=== PATIENT | female | born 1940 | race American Indian/Alaskan Native ===

== ENCOUNTER 2017-05-13 17:39 | Emergency (ER) | payer MEDICARE ==
[2017-05-13 17:39] VITALS: BMI 28.8
[2017-05-13 18:16] VITALS: RESP 16; TEMP 97.8; O2SAT 98
[2017-05-13 19:49] LABS: URINE APPEARANCE CLEAR (CLEAR); URINE BILIRUBIN NEGATIVE (NEGATIVE); URINE BLOOD NEGATIVE (NEGATIVE); URINE GLUCOSE (UA) NEGATIVE (NEGATIVE); URINE KETONE NEGATIVE (NEGATIVE); URINE LEUKOCYTE ESTERASE NEGATIVE Leu/uL (NEGATIVE); URINE PROTEIN NEGATIVE mg/dL (<30 mg/dL); URINE UROBILINOGEN 0.2 E.U./dL (<1 E.U./dL)
--- NOTE | 2017-05-13 20:23 | ED PDOC ---
Arrival/HPI - General Chief Complaint: Back Pain Time Seen by Provider: 05/13/17 17:48 Historian: Patient - History of Present Illness Narrative History of Present Illness (Text): 05/13/17 20:48 76 yo F w/ pmh of HTN, reports several day h/o atraumatic pain in the lower back , worse with movement, not taking any medication for her pain. Otherwise: (-) urinary symptoms, (-) paresthesias, (-) weakness, (-) acute bowel or bladder dysfunction, (-) fever. Has no history of prior back problem. Of note, patient's bp is noted to be elevated, states that she did not take her bp medication today, does not recall the name or dose and receives her Rx in the mail. Denies any dizziness, headache, chest pain or SOB. PMD Christy Past Medical History - Provider Review Nursing Documentation Reviewed: Yes - Past History Past History: No Previous - Infectious Disease Hx of Infectious Diseases: None - Tetanus Immunization Tetanus Immunization: Unknown - Reproductive Menopause: Yes - Cardiac Hx Hypertension: Yes - Neurological Hx Paralysis: No - Hematological/Oncological Hx Blood Transfusions: No - Musculoskeletal/Rheumatological Hx Musculoskeletal Disorders: No - Psychiatric Hx Emotional Abuse: No Hx Physical Abuse: No Hx Substance Use: No - Surgical History Hx Hysterectomy: Yes - Anesthesia Hx Anesthesia Reactions: No Hx Malignant Hyperthermia: No - Suicidal Assessment Feels Threatened In Home Enviroment: No Family/Social History - Physician Review Nursing Documentation Reviewed: Yes Family/Social History: Unknown Family HX Smoking Status: Never Smoked Hx Alcohol Use: No Hx Substance Use: No Hx Substance Use Treatment: No Allergies/Home Meds Allergies/Adverse Reactions: Allergies No Known Allergies Allergy (Verified 05/13/17 18:16) Home Medications: Home Meds Medication Instructions Recorded Confirmed HCTZ/Losartan Potassium [Hyzaar 1 tab PO DAILY 09/15/14 09/16/14 12.5 MG-50 MG] Nebivolol [Bystolic] 5 mg PO DAILY 09/15/14 09/16/14 Review of Systems - Review of Systems Constitutional: absent: Fatigue, Weight Change, Fevers Respiratory: absent: SOB, Cough, Sputum Cardiovascular: absent: Chest Pain, Palpitations, Edema Gastrointestinal: absent: Abdominal Pain, Diarrhea, Vomiting Genitourinary Female: absent: Dysuria, Frequency, Hematuria Musculoskeletal: Back Pain. absent: Arthralgias, Neck Pain Skin: absent: Rash, Pruritis, Skin Lesions Neurological: absent: Headache, Dizziness, Focal Weakness Physical Exam - Physical Exam Narrative Physical Exam (Text): 05/13/17 20:57 GENERAL APPEARANCE: Patient is awake, alert, oriented x 3, in no acute distress. SKIN: Warm, dry; (-) cyanosis. EYES: (-) conjunctival pallor. ENMT: Mucous membranes moist. NECK: (-) tenderness, (-) stiffness, (-) lymphadenopathy. CHEST AND RESPIRATORY: (-) rales, (-) rhonchi, (-) wheezes; breath sounds equal bilaterally. HEART AND CARDIOVASCULAR: (-) irregularity; (-) murmur, (-) gallop. ABDOMEN AND GI: Soft; (-) tenderness; (-) palpable mass. BACK: (+) mild point tenderness to the R paralumbar area, (-) spasm, (-) direct bony tenderness, (-) deformity. Straight leg raising (-) bilaterally. EXTREMITIES: (-) deformity. Distal pulses good bilaterally. NEURO AND PSYCH: Mental status as above. Intact sensation bilaterally; normal strength in extension of the knees, plantar and dorsiflexion of the toes. DTRs symmetric. Vital Signs Temp Pulse Resp BP Pulse Ox 05/13/17 20:54 72 202/111 H 05/13/17 20:32 72 16 202/111 H 98 05/13/17 18:14 97.8 F 71 16 200/113 H 98 Medical Decision Making ED Course and Treatment: 05/13/17 20:56 76 yo F w/ pmh of HTN, reports several day h/o atraumatic pain in the lower back , worse with movement. 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 UA (-) for infection or blood. Repeat BP is still elevated, patient still denies any headache, CP, SOB or dizziness, given clonidine 0.1 mg PO. On re-evaluation, patient is resting comfortably in bed in no acute distress. Reports no dizziness, headache, CP or SOB. Repeat BP 190/104. Patient states that she will take her bp medication when gets home. Patient advised that she must take her bp medication as soon as she gets home without fail. Otherwise instructed to follow up with primary care physician in 1-2 days without fail. Advised to take medication as prescribed. Return to the emergency room at any time for any new or worsening symptoms. Patient states she fully agrees with and understands discharge instructions. States that she agrees with the plan and disposition. Verbalized and repeated discharge instructions and plan. I have given the patient opportunity to ask any additional questions. - Lab Interpretations Lab Results: Lab Results 05/13/17 19:36: Urine Color yellow, Urine Appearance Clear, Urine pH 6.0, Ur Specific [place] 1.025, Urine Protein Negative, Urine Glucose (UA) Negative, Urine Ketones Negative, Urine Blood Negative, Urine Nitrate Negative, Urine Bilirubin Negative, Urine Urobilinogen 0.2, Ur Leukocyte Esterase Negative - RAD Interpretation Radiology Orders: 05/13/17 18:55 LS SPINE WITH OBL > 18 YRS OLD [RAD] Stat - Medication Orders Current Medication Orders: Discontinued Medications Clonidine HCl (Catapres) 0.1 mg PO STAT STA Stop: 05/13/17 20:34 Last Admin: 05/13/17 20:54 Dose: 0.1 mg [facility] Pulse and Blood Pressure Document 05/13/17 20:54 OCS (Rec: 05/13/17 20:54 OCS [id number]) Pulse Pulse Rate (60-90) 72 Blood Pressure Blood Pressure (100/60-150/90) 202/111 - PA / TARGETING ACQUISITION OFFICER / Resident Statement MD/DO has reviewed & agrees with the documentation as recorded. Disposition/Present on Arrival - Present on Arrival Any Indicators Present on Arrival: No History of DVT/PE: No History of Uncontrolled Diabetes: No Urinary Catheter: No History of Decub. Ulcer: No History Surgical Site Infection Following: None - Disposition Have Diagnosis and Disposition been Completed?: Yes Diagnosis: Low back pain Disposition: HOME/ ROUTINE Disposition Time: 20:21 Patient Plan: Discharge Condition: STABLE Discharge Instructions (ExitCare): Acute Low Back Pain (ED) Print Language: LAO Additional Instructions: Thank you for letting us take care of you today. You were treated for low back pain. The emergency medical care you received today was directed at your acute symptoms. If you were prescribed any medication, please fill it and take as directed. It may take several days for your symptoms to resolve. Return to the Emergency Department if your symptoms worsen, do not improve, or if you have any other problems. Please contact your doctor in 2 days for re-evaluation and follow up. Bring any paperwork you were given at discharge with you along with any medications you are taking to your follow up visit. Our treatment cannot replace ongoing medical care by a primary care provider (PCP) outside of the emergency department. Thank you for allowing the [facility] team to be part of your care today. If you had an X-Ray : A Radiologist will review the ED reading if any change in treatment is needed we will contact you. Prescriptions: Cyclobenzaprine [Cyclobenzaprine HCl] 10 mg PO TID PRN #12 tab PRN Reason: Muscle Spasm Referrals: Chris Harrison MD [Primary Care Provider] - Follow up with primary Forms: [employer] (Mongolian)
[2017-05-13 20:33] VITALS: BP 202/111; PULSE 72
--- NOTE | 2017-05-14 11:01 | RAD ---
PROCEDURE: Radiographs of the Lumbar Spine. HISTORY: pain COMPARISON: No prior. FINDINGS: BONES: Multiple bony fragments are seen consistent with previous fusion. These are seen along the facet joints at L3-4 and L4-5. DISC SPACES: Unremarkable. OTHER FINDINGS: None. IMPRESSION: No acute findings
== END 2017-05-13 21:06 | disposition home or self-care (01) ==
LOC: ED 17:39
DX: M54.5 Low back pain (principal); I10 Essential (primary) hypertension

== ENCOUNTER 2018-01-02 23:02 | Emergency (ER) | payer MEDICARE ==
[2018-01-02 23:24] VITALS: BMI 30.7
[2018-01-02 23:25] VITALS: TEMP 98
--- NOTE | 2018-01-02 23:45 | ED PDOC ---
Arrival/HPI <Mayank Wayne - Last Filed: 01/03/18 04:47> - General Historian: Patient, Family - History of Present Illness Time/Duration: Other (today) Symptom Onset: Gradual Symptom Course: Unchanged Quality: Throbbing Activities at Onset: Light Context: Home <Morgan Johnson - Last Filed: 01/04/18 00:38> - General Chief Complaint: High Blood Pressure Time Seen by Provider: 01/02/18 23:34 - History of Present Illness Narrative History of Present Illness (Text): 01/02/18 23:44 77 year old female, whose past medical history includes hypertension, no food/ drug allergies, who presents to the Emergency department brought in by family complaining of headache all throughout today after waking up this morning. Patient states she felt fine prior to falling a sleep last night but woke up today with a headache. Patient describes headache as a unilateral, throbbing sensation. Patient denies any blurry vision, tingling, or focal deficits. Patient states she took blood pressure tonight and incidentally her systolic pressure was 170/100, which prompter her visit to the Emergency room. Patient also denies any chest pain or shortness of breath. (Morgan Johnson) Past Medical History - Provider Review Nursing Documentation Reviewed: Yes - Past History Past History: No Previous - Infectious Disease Hx of Infectious Diseases: None - Tetanus Immunization Tetanus Immunization: Unknown - Cardiac Hx Cardiac Disorders: Yes Hx Hypertension: Yes - Pulmonary Hx Respiratory Disorders: No - Neurological Hx Neurological Disorder: No - HEENT Hx HEENT Disorder: No - Renal Hx Renal Disorder: No - Endocrine/Metabolic Hx Endocrine Disorders: No - Hematological/Oncological Hx Blood Disorders: No - Integumentary Hx Dermatological Disorder: No - Musculoskeletal/Rheumatological Hx Musculoskeletal Disorders: No - Gastrointestinal Hx Gastrointestinal Disorders: No - Genitourinary/Gynecological Hx Genitourinary Disorders: No - Psychiatric Hx Psychophysiologic Disorder: No Hx Depression: No Hx Emotional Abuse: No Hx Substance Use: No - Surgical History Hx Hysterectomy: Yes - Anesthesia Hx Anesthesia Reactions: No Hx Malignant Hyperthermia: No - Suicidal Assessment Feels Threatened In Home Enviroment: No <Morgan Johnson - Last Filed: 01/04/18 00:38> Family/Social History - Physician Review Nursing Documentation Reviewed: Yes Family/Social History: Unknown Family HX Smoking Status: Never Smoked Hx Alcohol Use: No Hx Substance Use: No Hx Substance Use Treatment: No <Morgan Johnson - Last Filed: 01/04/18 00:38> Allergies/Home Meds <Mayank Wayne - Last Filed: 01/03/18 04:47> <Morgan Johnson - Last Filed: 01/04/18 00:38> Allergies/Adverse Reactions: Allergies No Known Allergies Allergy (Verified 01/03/18 23:29) Home Medications: Home Meds Medication Instructions Recorded Confirmed HCTZ/Losartan Potassium [Hyzaar 1 tab PO DAILY 09/15/14 01/03/18 12.5 MG-50 MG] Review of Systems - Physician Review All systems were reviewed & negative as marked: Yes - Review of Systems Respiratory: absent: SOB Cardiovascular: absent: Chest Pain Neurological: Headache <Morgan Johnson - Last Filed: 01/04/18 00:38> Physical Exam Vital Signs Reviewed: Yes Temperature: Afebrile Blood Pressure: Hypertensive Pulse: Regular Respiratory Rate: Normal Appearance: Positive for: Well-Appearing, Non-Toxic, Comfortable Pain Distress: None Mental Status: Positive for: Alert and Oriented X 3 - Systems Exam Head: Present: Atraumatic, Normocephalic. No: Tenderness (No temporal artery tenderness) Pupils: Present: PERRL Extroacular Muscles: Present: EOMI Conjunctiva: Present: Normal Mouth: Present: Moist Mucous Membranes Neck: Present: Normal Range of Motion. No: Meningeal Signs, MIDLINE TENDERNESS , Paraspinal Tenderness Respiratory/Chest: Present: Clear to Auscultation, Good Air Exchange. No: Respiratory Distress, Accessory Muscle Use Cardiovascular: Present: Regular Rate and Rhythm, Normal S1, S2. No: Murmurs Abdomen: No: Tenderness, Distention, Peritoneal Signs Back: Present: Normal Inspection. No: CVA Tenderness, Midline Tenderness, Paraspinal Tenderness Upper Extremity: Present: Normal Inspection. No: Cyanosis, Edema Lower Extremity: Present: Normal Inspection. No: Edema Neurological: Present: GCS=15, CN II-XII Intact, Speech Normal, Motor Func Grossly Intact, Normal Sensory Function, Normal Cerebellar Funct Skin: Present: Warm, Dry, Normal Color. No: Rashes Psychiatric: Present: Alert, Oriented x 3, Normal Insight, Normal Concentration <Morgan Johnson Alen - Last Filed: 01/04/18 00:38> Vital Signs Temp Pulse Resp BP Pulse Ox 01/03/18 03:02 63 16 145/86 99 01/03/18 01:38 194/114 H 01/03/18 01:02 84 18 179/106 H 98 01/02/18 23:24 98.0 F 70 18 191/108 H 98 Medical Decision Making - Lab Interpretations I have reviewed the lab results: Yes - RAD Interpretation [employer] Functional Analyst: Radiologist <Mayank Wayne - Last Filed: 01/03/18 04:47> - Lab Interpretations I have reviewed the lab results: Yes <Morgan Johnson - Last Filed: 01/04/18 00:38> ED Course and Treatment: 01/03/18 04:42 CT Head shows: 1. Probably chronic microvascular ischemic changes. Acute infarction may be CT occult within first 24 hours. If a focal deficit persists, consider followup CT or MRI for further evaluation. 2. Incidental/non-acute findings are described above. (Mayank Wayne) 01/02/18 23:44 Impression: 77 year old female complaining of headache since waking this morning. Plan: -- CT Head -- Labs -- Urinalysis -- Tylenol -- Reglan -- Benadryl -- Reassess and disposition Progress Notes: 01/03/18 01:33 -Headache decreased but the BP is persistently 190s/100s, vasotec 1.25mg IV ordered. 01/03/18 02:31 -Labs are non-significant -BP is coming down with IV vasotec slowly but still around 170/100 -Pt. feels well, sleeping, no focal neurological deficits. -CT Head ordered and pending result -Case discussed and endorsed to the ER attending Dr. Wayne for the follow up care/labs/radiology result/re-evaluation and dispo. (Morgan Johnson) - Lab Interpretations Lab Results: 01/03/18 00:10 01/03/18 00:10 Lab Results 01/03/18 00:10: WBC 9.2, RBC 4.56, Hgb 14.4, Hct 40.9, MCV 89.7, MCH 31.6, MCHC 35.2, RDW 13.4, Plt Count 286, MPV 9.4, Gran % 64.8, Lymph % (Auto) 27.8, [place] % (Auto) 5.7, Eos % (Auto) 1.5, Baso % (Auto) 0.2, Gran # 5.95, Lymph # (Auto) 2.6, [place] # (Auto) 0.5, Eos # (Auto) 0.1, Baso # (Auto) 0.02 01/03/18 00:10: Sodium 138, Potassium 3.6, Chloride 97 L, Carbon Dioxide 30, Anion Gap 15, BUN 19, Creatinine 0.8, Est GFR ( Amer) > 60, Est GFR (Non- Af Amer) > 60, Random Glucose 177 H, Calcium 9.8, Magnesium 1.8, Total Bilirubin 0.6, AST 33, ALT 25, Alkaline Phosphatase 87, Total Protein 7.7, Albumin 4.6, Globulin 3.1, Albumin/Globulin Ratio 1.5 - RAD Interpretation Radiology Orders: 01/02/18 23:46 HEAD W/O CONTRAST [CT] Stat - Medication Orders Current Medication Orders: Discontinued Medications Acetaminophen (Tylenol 325mg Tab) 650 mg PO STAT STA Stop: 01/02/18 23:47 Last Admin: 01/03/18 00:48 Dose: 650 mg MAR Pain/Vitals Document 01/03/18 00:48 JOL (Rec: 01/03/18 00:49 JONNY [email or web address]-PC) Pain Reassessment Is This A Pain ReAssessment? No Sleep Is patient sleeping during reassessment? No Presence of Pain Presence of Pain Yes Pain Scale Used Pain Scale Used Numeric Location Intensity 5 Diphenhydramine HCl (Benadryl) 25 mg IVP STAT STA Stop: 01/02/18 23:47 Last Admin: 01/03/18 00:48 Dose: 25 mg IVP Administration Document 01/03/18 00:48 JOL (Rec: 01/03/18 00:48 JOShelly [id number]) Charges for Administration # of IVP Administrations 1 Enalaprilat (Vasotec Iv) 1.25 mg IVP STAT STA Stop: 01/03/18 01:33 Last Admin: 01/03/18 01:38 Dose: 1.25 mg MAR Blood Pressure Document 01/03/18 01:38 RD (Rec: 01/03/18 01:39 RD [id number]) Blood Pressure Blood Pressure (100/60-150/90) 194/114 IVP Administration Document 01/03/18 01:38 RD (Rec: 01/03/18 01:39 RD [id number]) Charges for Administration # of IVP Administrations 1 Metoclopramide HCl (Reglan) 10 mg IVP STAT STA Stop: 01/02/18 23:47 Last Admin: 01/03/18 00:48 Dose: 10 mg IVP Administration Document 01/03/18 00:48 JONNY (Rec: 01/03/18 00:48 JONNY [id number]) Charges for Administration # of IVP Administrations 1 - PA / SENIOR NETWORK ENGINEER / Resident Statement / has reviewed & agrees with the documentation as recorded. / has examined the patient and agrees with the treatment plan. <Mayank Wayne - Last Filed: 01/03/18 04:47> - PA / SENIOR NETWORK ENGINEER / Resident Statement / has reviewed & agrees with the documentation as recorded. / has examined the patient and agrees with the treatment plan. - Scribe Statement The provider has reviewed the documentation as recorded by the Scribe <Morgan Johnson - Last Filed: 01/04/18 00:38> - Scribe Statement Mallorie Buchanan All medical record entries made by the Scribe were at my direction and personally dictated by me. I have reviewed the chart and agree that the record accurately reflects my personal performance of the history, physical exam, medical decision making, and the department course for this patient. I have also personally directed, reviewed, and agree with the discharge instructions and disposition. (Morgan Johnson) Disposition/Present on Arrival - Present on Arrival Any Indicators Present on Arrival: No - Disposition Have Diagnosis and Disposition been Completed?: Yes Disposition Time: 04:49 Patient Plan: Discharge <Mayank Wayne - Last Filed: 01/03/18 04:47> - Present on Arrival Any Indicators Present on Arrival: No History of DVT/PE: No History of Uncontrolled Diabetes: No Urinary Catheter: No History of Decub. Ulcer: No History Surgical Site Infection Following: None - Disposition Have Diagnosis and Disposition been Completed?: Yes Disposition Time: 02:32 <Morgan Johnson - Last Filed: 01/04/18 00:38> - Disposition Diagnosis: HTN (hypertension), Headache Disposition: HOME/ ROUTINE Condition: GOOD Discharge Instructions (ExitCare): High Blood Pressure (DC), Headache, Adult ( DC) Additional Instructions: Continue your meds as prescribed/follow up with your doctor this week Forms: [employer] ([place])
[2018-01-02] MEDS ORDERED: DiphenhydrAMINE 50 mg/ml Inj IVP STA (23:46)
[2018-01-03 00:33] LABS: BASO # 0.02 K/mm3 (0.0-2.0); BASO % 0.2 % (0.0-3.0); EOS # 0.1 (0.0-0.7); EOS % 1.5 % (1.5-5.0); GRAN # 5.95 (1.4-6.5); GRAN % 64.8 % (50.0-68.0); HEMOGLOBIN 14.4 g/dL (12.0-16.0); LYMPH # 2.6 (1.2-3.4); LYMPH % 27.8 % (22.0-35.0); MEAN CELL VOLUME 89.7 fl (80.0-105.0); MEAN CORPUSCULAR HEMOGLOBIN 31.6 pg (25.0-35.0); MEAN CORPUSCULAR HGB CONC 35.2 g/dl (31.0-37.0); MEAN PLATELET VOLUME 9.4 fl (7.0-11.0); MONO # 0.5 (0.1-0.6); MONO % 5.7 % (1.0-6.0); RBC 4.56 10^6/uL (3.5-6.1); RED CELL DISTRIBUTION WIDTH 13.4 % (11.5-14.5); WHITE BLOOD COUNT 9.2 10^3/ul (4.5-11.0)
[2018-01-03 00:40] LABS: ALB/GLOB RATIO 1.5 (1.1-1.8); ALBUMIN 4.6 g/dL (3.0-4.8); ALT/SGPT 25 U/L (7-56); AST/SGOT 33 U/L (14-36); BLOOD UREA NITROGEN 19 mg/dL (7-21); CALCIUM 9.8 mg/dL (8.4-10.5); GFR AFRICAN-AMERICAN > 60; GFR NON-AFRICAN AMERICAN > 60
[2018-01-03] MEDS ORDERED: EnalaprilAT 1.25 mg/ml Inj IVP STA (01:32)
[2018-01-03 03:37] VITALS: BP 145/86; PULSE 63; RESP 16; O2SAT 99
--- NOTE | 2018-01-03 08:57 | CT ---
Date of service: 01/03/2018 PROCEDURE: CT HEAD WITHOUT CONTRAST. HISTORY: headache x 1 day COMPARISON: None available. TECHNIQUE: Axial computed tomography images were obtained through the head/brain without intravenous contrast. Radiation dose: Total exam DLP = mGy-cm. This CT exam was performed using one or more of the following dose reduction techniques: Automated exposure control, adjustment of the mA and/or kV according to patient size, and/or use of iterative reconstruction technique. FINDINGS: HEMORRHAGE: No intracranial hemorrhage. BRAIN: No mass effect or edema. No atrophy or chronic microvascular ischemic changes. VENTRICLES: Unremarkable. No hydrocephalus. CALVARIUM: Unremarkable. PARANASAL SINUSES: Unremarkable as visualized. No significant inflammatory changes. MASTOID AIR CELLS: Unremarkable as visualized. No inflammatory changes. OTHER FINDINGS: None. IMPRESSION: Normal CT of the Head.
== END 2018-01-03 04:50 | disposition home or self-care (01) ==
LOC: ED 23:02
DX: I10 Essential (primary) hypertension (principal); R51 Headache
CPT/HCPCS: 70450; 80053; 83735; 85025; 96374; 96375; 99285; J1200; J2765

== ENCOUNTER 2018-01-03 22:56 | Emergency (ER) | payer MEDICARE ==
[2018-01-03 22:56] VITALS: BMI 30.7
--- NOTE | 2018-01-03 23:31 | ED PDOC ---
Arrival/HPI - General Chief Complaint: High Blood Pressure Time Seen by Provider: 01/03/18 23:18 Historian: Patient, Family - History of Present Illness Narrative History of Present Illness (Text): 01/03/18 23:37 A 77 year old female, whose past medical history includes , presents to the emergency department complaining of headache since yesterday. Patient reports she came to the Emergency department yesterday with the same symptoms with some relief and pain returned today. Patient denies any fever, chills, chest pain, shortness of breath, coughing, nausea, vomiting, back pain, neck pain, dizziness , or any other complaints. Time/Duration: Other (Since yesterday) Symptom Onset: Gradual Symptom Course: Unchanged Quality: Aching Context: Home Past Medical History - Provider Review Nursing Documentation Reviewed: Yes - Past History Past History: No Previous - Infectious Disease Hx of Infectious Diseases: None - Tetanus Immunization Tetanus Immunization: Unknown - Cardiac Hx Cardiac Disorders: Yes Hx Hypertension: Yes - Pulmonary Hx Respiratory Disorders: No - Neurological Hx Neurological Disorder: No - HEENT Hx HEENT Disorder: No - Renal Hx Renal Disorder: No - Endocrine/Metabolic Hx Endocrine Disorders: No - Hematological/Oncological Hx Blood Disorders: No - Integumentary Hx Dermatological Disorder: No - Musculoskeletal/Rheumatological Hx Musculoskeletal Disorders: No - Gastrointestinal Hx Gastrointestinal Disorders: No - Genitourinary/Gynecological Hx Genitourinary Disorders: No - Psychiatric Hx Psychophysiologic Disorder: No Hx Depression: No Hx Emotional Abuse: No Hx Substance Use: No - Surgical History Hx Hysterectomy: Yes - Anesthesia Hx Anesthesia: Yes Hx Anesthesia Reactions: No Hx Malignant Hyperthermia: No - Suicidal Assessment Feels Threatened In Home Enviroment: No Family/Social History - Physician Review Nursing Documentation Reviewed: Yes Family/Social History: Unknown Family HX Smoking Status: Never Smoked Hx Alcohol Use: No Hx Substance Use: No Hx Substance Use Treatment: No Allergies/Home Meds Allergies/Adverse Reactions: Allergies No Known Allergies Allergy (Verified 01/03/18 23:29) Home Medications: Home Meds Medication Instructions Recorded Confirmed HCTZ/Losartan Potassium [Hyzaar 1 tab PO DAILY 09/15/14 01/03/18 12.5 MG-50 MG] Review of Systems - Physician Review All systems were reviewed & negative as marked: Yes - Review of Systems Constitutional: Normal. absent: Fevers, Night Sweats Eyes: Normal Respiratory: Normal. absent: SOB, Cough Cardiovascular: Normal. absent: Chest Pain Gastrointestinal: absent: Nausea, Vomiting Musculoskeletal: absent: Back Pain, Neck Pain Neurological: Headache. absent: Dizziness Physical Exam Vital Signs Reviewed: Yes Vital Signs Temp Pulse Resp BP Pulse Ox 01/04/18 01:04 97.8 F 83 18 168/95 H 98 01/04/18 00:38 84 17 168/95 H 98 01/03/18 23:21 98.3 F 80 18 181/96 H 97 Temperature: Afebrile Blood Pressure: Hypertensive Pulse: Regular Respiratory Rate: Normal Appearance: Positive for: Well-Appearing, Non-Toxic, Comfortable Pain Distress: None Mental Status: Positive for: Alert and Oriented X 3 - Systems Exam Head: Present: Atraumatic, Normocephalic Pupils: Present: PERRL Extroacular Muscles: Present: EOMI Conjunctiva: Present: Normal Mouth: Present: Moist Mucous Membranes Neck: Present: Normal Range of Motion Respiratory/Chest: Present: Clear to Auscultation, Good Air Exchange. No: Respiratory Distress, Accessory Muscle Use Cardiovascular: Present: Regular Rate and Rhythm, Normal S1, S2. No: Murmurs Abdomen: No: Tenderness, Distention, Peritoneal Signs Back: Present: Normal Inspection Upper Extremity: Present: Normal Inspection. No: Cyanosis, Edema Lower Extremity: Present: Normal Inspection. No: Edema Neurological: Present: GCS=15, CN II-XII Intact, Speech Normal Skin: Present: Warm, Dry, Normal Color. No: Rashes Psychiatric: Present: Alert, Oriented x 3, Normal Insight, Normal Concentration Medical Decision Making ED Course and Treatment: pappas/essential htn - labs pain control reassess 01/03/18 23:41 Impression: 77 year old female presenting to the Emergency department complaining of a headache. Plan: -- Labs -- Tylenol -- Benadryl -- Reglan -- Urinalysis -- Reassess and disposition Prior Visits: Notes and results from previous visits were reviewed. Patient was last seen in the emergency department on 01/02/18 complaining of hypertension and was discharged when symptoms improved. Progress Notes: 01/04/18 02:04 pt reassesed symptosm improved asking fro dc. neg head ct yesterady. no thunderclap features. advivse outpt fu and return precautions neuro intact 01/04/18 02:05 - Lab Interpretations Lab Results: 01/03/18 23:45 01/03/18 23:45 Lab Results 01/03/18 23:45: Sodium 137, Potassium 4.0, Chloride 96 L, Carbon Dioxide 31, Anion Gap 15, BUN 23 H, Creatinine 0.8, Est GFR ( Amer) > 60, Est GFR ( Non-Af Amer) > 60, Random Glucose 193 H, Calcium 9.8, Total Bilirubin 1.1, AST 34, ALT 29, Alkaline Phosphatase 95, Total Protein 8.0, Albumin 4.6, Globulin 3.4, Albumin/Globulin Ratio 1.3 01/03/18 23:45: PT 11.2, INR 0.98, APTT 30.3 01/03/18 23:45: WBC 11.3 H D, RBC 4.60, Hgb 14.6, Hct 41.0, MCV 89.1, MCH 31.7, MCHC 35.6, RDW 13.3, Plt Count 293, MPV 9.5, Gran % 71.7 H, Lymph % (Auto) 21.1 L, [place] % (Auto) 5.4, Eos % (Auto) 1.5, Baso % (Auto) 0.3, Gran # 8.10 H, Lymph # (Auto) 2.4, [place] # (Auto) 0.6, Eos # (Auto) 0.2, Baso # (Auto) 0.03 - Medication Orders Current Medication Orders: Discontinued Medications Acetaminophen (Tylenol 325mg Tab) 975 mg PO STAT STA Stop: 01/03/18 23:37 Last Admin: 01/03/18 23:53 Dose: 975 mg MAR Pain/Vitals Document 01/03/18 23:53 [place] (Rec: 01/03/18 23:53 [email or web address]) Pain Reassessment Is This A Pain ReAssessment? No Sleep Is patient sleeping during reassessment? No Presence of Pain Presence of Pain Yes Pain Scale Used Pain Scale Used Numeric Location Left, Right or Bilateral Left Pain Location Body Technical Communicator Description Throbbing Intensity 8 Scale Used Numeric Pain Behavior Irritability Aggravating Factors ADL's Diphenhydramine HCl (Benadryl) 25 mg IVP STAT STA Stop: 01/03/18 23:37 Last Admin: 01/03/18 23:53 Dose: 25 mg IVP Administration Document 01/03/18 23:53 [facility] (Rec: 01/03/18 23:54 [email or web address]) Charges for Administration # of IVP Administrations 1 Metoclopramide HCl (Reglan) 10 mg IVP STAT STA Stop: 01/03/18 23:37 Last Admin: 01/03/18 23:54 Dose: 10 mg IVP Administration Document 01/03/18 23:54 R (Rec: 01/03/18 23:54 [facility] Charges for Administration # of IVP Administrations 1 - Scribe Statement The provider has reviewed the documentation as recorded by the Braulioibe Keke Barney All medical record entries made by the Scribe were at my direction and personally dictated by me. I have reviewed the chart and agree that the record accurately reflects my personal performance of the history, physical exam, medical decision making, and the department course for this patient. I have also personally directed, reviewed, and agree with the discharge instructions and disposition. Disposition/Present on Arrival - Present on Arrival Any Indicators Present on Arrival: No History of DVT/PE: No History of Uncontrolled Diabetes: No Urinary Catheter: No History of Decub. Ulcer: No History Surgical Site Infection Following: None - Disposition Have Diagnosis and Disposition been Completed?: Yes Diagnosis: Headache, Hypertension Disposition: HOME/ ROUTINE Disposition Time: 01:00 Condition: STABLE Discharge Instructions (ExitCare): Headache, Adult, High Blood Pressure (DC) Additional Instructions: please follow up with your doctor. discuss your lab tests with your doctor. you may need additional testing as an outpatient. return to er with worsening symptoms or concerns. Referrals: [facility] [Outside] - Follow up with [place] [facility] [place] - Follow up with primary Forms: [employer] ([place]vorian)
[2018-01-03] MEDS ORDERED: DiphenhydrAMINE 50 mg/ml Inj IVP STA (23:36)
[2018-01-04 00:02] LABS: BASO # 0.03 K/mm3 (0.0-2.0); BASO % 0.3 % (0.0-3.0); EOS # 0.2 (0.0-0.7); EOS % 1.5 % (1.5-5.0); GRAN # 8.1 (1.4-6.5); GRAN % 71.7 % (50.0-68.0); HEMOGLOBIN 14.6 g/dL (12.0-16.0); LYMPH # 2.4 (1.2-3.4); LYMPH % 21.1 % (22.0-35.0); MEAN CELL VOLUME 89.1 fl (80.0-105.0); MEAN CORPUSCULAR HEMOGLOBIN 31.7 pg (25.0-35.0); MEAN CORPUSCULAR HGB CONC 35.6 g/dl (31.0-37.0); MEAN PLATELET VOLUME 9.5 fl (7.0-11.0); MONO # 0.6 (0.1-0.6); MONO % 5.4 % (1.0-6.0); RBC 4.6 10^6/uL (3.5-6.1); RED CELL DISTRIBUTION WIDTH 13.3 % (11.5-14.5); WHITE BLOOD COUNT 11.3 10^3/ul (4.5-11.0)
[2018-01-04 00:09] LABS: INR 0.98; PROTHROMBIN TIME 11.2 SECONDS (9.4-12.5)
[2018-01-04 00:12] LABS: PARTIAL THROMBOPLASTIN TIME 30.3 Seconds (25.1-36.5)
[2018-01-04 00:33] LABS: ALB/GLOB RATIO 1.3 (1.1-1.8); ALBUMIN 4.6 g/dL (3.0-4.8); ALT/SGPT 29 U/L (7-56); AST/SGOT 34 U/L (14-36); BLOOD UREA NITROGEN 23 mg/dL (7-21); CALCIUM 9.8 mg/dL (8.4-10.5); GFR AFRICAN-AMERICAN > 60; GFR NON-AFRICAN AMERICAN > 60
[2018-01-04 01:02] VITALS: BP 168/95; O2SAT 98
[2018-01-04 01:06] VITALS: PULSE 83; RESP 18; TEMP 97.8
== END 2018-01-04 01:06 | disposition home or self-care (01) ==
LOC: ED 22:56
DX: I10 Essential (primary) hypertension (principal); R51 Headache
CPT/HCPCS: 80053; 85025; 85610; 85730; 96374; 96375; 99283; J1200; J2765

== ENCOUNTER 2018-06-04 11:11 | Emergency (ER) | payer MEDICARE ==
[2018-03-04 09:34] VITALS: BMI 30.2
--- NOTE | 2018-06-04 15:57 | ED PDOC ---
Arrival/HPI - General Chief Complaint: Upper Extremity Problem/Injury Time Seen by Provider: 06/04/18 14:49 Historian: Patient - History of Present Illness Narrative History of Present Illness (Text): 06/04/18 15:57 Patient is a Past Medical History - Past History Past History: No Previous - Infectious Disease Hx of Infectious Diseases: None - Tetanus Immunization Tetanus Immunization: Unknown - Cardiac Hx Hypertension: Yes - Pulmonary Hx Respiratory Disorders: No - Neurological Hx Neurological Disorder: No - HEENT Hx HEENT Disorder: No - Renal Hx Renal Disorder: No - Endocrine/Metabolic Hx Endocrine Disorders: No - Hematological/Oncological Hx Blood Disorders: No - Integumentary Hx Dermatological Disorder: No - Musculoskeletal/Rheumatological Hx Musculoskeletal Disorders: No - Gastrointestinal Hx Gastrointestinal Disorders: No - Genitourinary/Gynecological Hx Genitourinary Disorders: No - Psychiatric Hx Psychophysiologic Disorder: No Hx Depression: No Hx Emotional Abuse: No Hx Substance Use: No - Surgical History Hx Hysterectomy: Yes - Anesthesia Hx Anesthesia: Yes Hx Anesthesia Reactions: No Hx Malignant Hyperthermia: No - Suicidal Assessment Feels Threatened In Home Enviroment: No Family/Social History Smoking Status: Never Smoked Hx Alcohol Use: No Hx Substance Use: No Hx Substance Use Treatment: No Allergies/Home Meds Allergies/Adverse Reactions: Allergies No Known Allergies Allergy (Verified 01/03/18 23:29) Home Medications: Home Meds Medication Instructions Recorded Confirmed Losartan/Hydrochlorothiazide 1 tab PO DAILY 03/04/18 03/04/18 [Hyzaar 25 mg-100 mg] Multivit-Min/Iron/Folic Acid/K 1 each PO DAILY 03/04/18 03/04/18 [Adults Multivitamin Tablet] amLODIPine [Norvasc] 5 mg PO DAILY 03/04/18 03/04/18 Disposition/Present on Arrival - Present on Arrival History of DVT/PE: No History of Uncontrolled Diabetes: No Urinary Catheter: No History Surgical Site Infection Following: None - Disposition Forms: [employer] ([place]ux[place]ish)
== END 2018-06-04 18:11 | disposition left against medical advice (07) ==
LOC: ED 11:11
DX: M25.511 Pain in right shoulder (principal); M79.18 Myalgia, other site; V49.9XXA Car occupant (driver) (passenger) injured in unspecified traffic accident, initial encounter

== ENCOUNTER 2018-06-04 15:21 | Emergency (ER) | payer OTHER, MEDICARE ==
[2018-06-04 15:37] VITALS: BMI 29.1
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
[2018-06-04 15:54] VITALS: BP 137/83; PULSE 65; RESP 18; TEMP 98.9; O2SAT 98
--- NOTE | 2018-06-04 18:17 | RAD ---
Date of service: 06/04/2018 PROCEDURE: Radiographs of the Right Shoulder HISTORY: r/o Fx COMPARISON: No prior. FINDINGS: BONES: Normal. No fracture. 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 SOFT TISSUES: Normal. OTHER FINDINGS: None. IMPRESSION: No acute displaced fracture or dislocation.
== END 2018-06-04 18:43 | disposition home or self-care (01) ==
LOC: ED 15:21
DX: S43.401A Unspecified sprain of right shoulder joint, initial encounter (principal); V49.9XXA Car occupant (driver) (passenger) injured in unspecified traffic accident, initial encounter; I10 Essential (primary) hypertension